=== PATIENT | male | born 1950 | race Two or more races ===

== ENCOUNTER 2022-05-05 05:10 | Day surgery (SDC) | payer OTHER ==
[~2022-05-05 05:10] MED LIST: AMLODI PO; LEVO-T175 MCG PO; PLAVIX75 MG PO; SINGULAIR10 MG PO; VALSARTAN-HCTZ1 EAC2 PO; [UNRECOGNIZED DRUG - OTHER] PO
== END 2022-05-05 16:00 | disposition home or self-care (01) ==
LOC: CIR.AMB 05:10
PROVIDERS: ATTEND Colon & Rectal Surgery
DX: K60.5 Anorectal fistula (principal); Z20.822 Contact with and (suspected) exposure to COVID-19; Z88.6 Allergy status to analgesic agent; I10 Essential (primary) hypertension; Z95.5 Presence of coronary angioplasty implant and graft; E78.5 Hyperlipidemia, unspecified; I25.10 Atherosclerotic heart disease of native coronary artery without angina pectoris; J45.909 Unspecified asthma, uncomplicated

== ENCOUNTER 2022-10-27 06:33 | Day surgery (SDC) | payer OTHER ==
[~2022-10-27] VITALS: Ht 177.8 cm; Wt 127.0 kg
[~2022-10-27 06:33] MED LIST changes: +DILTIAZEM 24HR180 MG PO; +ELIQUIS5 MG PO; +FLECAINIDE ACE100 MG PO
== END 2022-10-27 18:00 | disposition home or self-care (01) ==
LOC: CIR.AMB 06:33
PROVIDERS: ATTEND Colon & Rectal Surgery
DX: K60.5 Anorectal fistula (principal); K60.3 Anal fistula; Z88.6 Allergy status to analgesic agent; K92.1 Melena; I10 Essential (primary) hypertension; E03.9 Hypothyroidism, unspecified

== ENCOUNTER 2023-06-24 07:06 | Emergency (ER) | payer OTHER ==
[~2023-06-24] VITALS: Ht 177.8 cm; Wt 81.6 kg
[2023-06-24] MEDS ORDERED: MONTELUKAST SODI4 M1 (07:24)
[2023-06-24 08:49] LABS: HEMATOCRIT 37.2 % (39.0-48.0); HEMOGLOBIN 12.1 g/dL (13-16.00); MEAN CELL VOLUME 70.6 fL (80.0-100.00); MEAN CORPUSCULAR HEMOGLOBIN 22.9 pg (27.00-32.0); MEAN CORPUSCULAR HGB CONC 32.4 g/dl (32.0-36.0); PLATELET COUNT 375 K/uL (150-450); RED BLOOD COUNT 5.28 M/uL (4.00-6.00); RED CELL DISTRIBUTION WIDTH 20.2 % (11.5-14.5)
[2023-06-24 09:03] LABS: URINE APPEARANCE Clear; URINE BACTERIA 12.5 uL (0.0-1933); URINE BILIRRUBIN Negative (NEGATIVE); URINE BLOOD Negative; URINE COLOR Yellow; URINE LEUKOCYTE Negative; URINE NITRATE Negative; URINE PROTEIN Negative (NEGATIVE); URINE UROBILINOGEN 0.2 E.U./dl
[2023-06-24 09:11] LABS: URINE EPITHELIAL CELLS 0.3 uL (0.0-38.8); URINE GLUCOSE >=1000 MG/DL (NEGATIVE); URINE RBC 1.4 uL (0.0-20.8)
[2023-06-24 09:33] LABS: CALCIUM 9.2 mg/dL (8.5-10.1); CREATININE SERUM 1.09 mg/dL (0.70-1.30); GFR 66.31; POTASSIUM 4.12 mEq/L (3.5-5.1)
== END 2023-06-24 14:58 | disposition home or self-care (01) ==
LOC: ER 07:07
PROVIDERS: Emergency Medicine
DX: K60.3 Anal fistula (principal); Z88.6 Allergy status to analgesic agent; J45.909 Unspecified asthma, uncomplicated; I10 Essential (primary) hypertension; E03.9 Hypothyroidism, unspecified
CPT/HCPCS: 36415; 74177; 96365; 96366; 99284; J2543; J7030; Q9965

== ENCOUNTER 2023-09-14 06:44 | Day surgery (SDC) | payer OTHER ==
[~2023-09-14] VITALS: Ht 177.8 cm; Wt 127.5 kg
[~2023-09-14 06:44] MED LIST changes: +MONTELUKAST SODI4 M1
[2023-09-14] MEDS ORDERED: LIDOCAINE HCL 1%/Epi 20ML VIAL IJ ONE ×2 (13:04→14:02)
[2023-09-14] MEDS ORDERED: POVIDONE-IODINE 118 ML BOTT TOP ONE (13:43)
[2023-09-14] MEDS ORDERED: CEFTRIAXONE SODIUM 2,000 MG VIAL ONE (13:44)
[2023-09-14] MEDS ORDERED: DIBUCAINE 15 GM OINT..GM. TUBE ONE (13:44)
[2023-09-14] MEDS ORDERED: METRONIDAZOLE/SODIUM CHLORIDE 500 MG/100 ML PIGGYBACK IV ONE (13:44)
[2023-09-14] MEDS ORDERED: BUPIVACAINE HCL/PF 0.5% 30ML ML ONE (13:58)
[2023-09-14] MEDS ORDERED: HEMOSTATIC MATRIX 1 KIT KIT TOP ONE (13:59)
[2023-09-14] MEDS ORDERED: DIBUCAINE 30 GM TUBE ONE (14:02)
[2023-09-14] MEDS ORDERED: POVIDONE-IODINE 118 ML BOTT TOP SCH (14:30)
[2023-09-14] MEDS ORDERED: LIDOCAINE HCL/EPINEPHRINE 10 ML VIAL IJ SCH (14:30)
[2023-09-14] MEDS ORDERED: HEMOSTATIC MATRIX 1 KIT KIT TOP SCH (14:30)
[2023-09-14] MEDS ORDERED: METRONIDAZOLE/SODIUM CHLORIDE 500 MG/100 ML PIGGYBACK IV SCH (14:30)
[2023-09-14] MEDS ORDERED: DIBUCAINE 30 GM TUBE RECTAL SCH (14:30)
[2023-09-14] MEDS ORDERED: CEFTRIAXONE SODIUM 2,000 MG VIAL IV SCH (14:30)
[2023-09-14] MEDS ORDERED: BUPIVACAINE HCL/PF 0.5% 30ML ML IJ SCH (14:30)
[2023-09-14] MEDS ORDERED: HYDROGEN PEROXIDE 118 ML SOLUTION TOP SCH (15:00)
[2023-09-14] MEDS ORDERED: ENALAPRILAT DIHYDRATE 1.25 MG/ML VIAL IV ONE (20:57)
[2023-09-14] MEDS ORDERED: PHENAZOPYRIDINE HCL 100 MG TABLET PO ONE (20:57)
[2023-09-16] MEDS ORDERED: FAMOTIDINE/PF 20 MG/2 ML VIAL ONE (15:05)
== END 2023-09-14 19:15 | disposition home or self-care (01) ==
LOC: CIR.AMB 06:44
PROVIDERS: ATTEND Colon & Rectal Surgery
DX: K60.3 Anal fistula (principal); Z88.6 Allergy status to analgesic agent; E78.5 Hyperlipidemia, unspecified; I10 Essential (primary) hypertension; E03.9 Hypothyroidism, unspecified

== ENCOUNTER 2024-08-01 06:40 | Day surgery (SDC) | payer OTHER ==
[2024-07-25 11:49] VITALS: BP 164/82
[2024-07-25 11:59] LABS: URINE APPEARANCE Clear; URINE BILIRRUBIN Negative (NEGATIVE); URINE BLOOD Negative; URINE COLOR Yellow; URINE GLUCOSE Negative (NEGATIVE); URINE KETONE Negative (NEGATIVE); URINE LEUKOCYTE Negative; URINE NITRATE Negative; URINE PROTEIN Negative (NEGATIVE); URINE UROBILINOGEN 0.2 E.U./dl
[2024-07-25 12:00] LABS: URINE RBC 9.8 uL (0.0-20.8)
[2024-07-25 12:04] LABS: HEMATOCRIT 35.5 % (39.0-48.0); HEMOGLOBIN 11.3 g/dL (13-16.00); MEAN CORPUSCULAR HEMOGLOBIN 21.9 pg (27.00-32.0); MEAN CORPUSCULAR HGB CONC 31.7 g/dl (32.0-36.0); PLATELET COUNT 234 K/uL (150-450); RED BLOOD COUNT 5.15 M/uL (4.00-6.00); RED CELL DISTRIBUTION WIDTH 18.9 % (11.5-14.5)
[2024-07-25 12:10] LABS: URINE BACTERIA 3.6 uL (0.0-1933); URINE EPITHELIAL CELLS 0.6 uL (0.0-38.8)
[2024-07-25 12:41] LABS: INR 1.06; PARTIAL THROMBOPLASTIN TIME 30.8 SECONDS (22.0-34.0); PROTHROMBIN TIME 11.5 SECONDS (9.0-11.5)
[2024-07-25 12:43] LABS: ALBUMIN 3.8 gm/dL (3.4-5.0); BILIRUBIN TOTAL 0.38 mg/dL (0.3-1.2); CREATININE SERUM 1.03 mg/dL (0.70-1.30); GFR 70.59; POTASSIUM 4.7 mEq/L (3.5-5.1); TOTAL PROTEIN 6.8 gm/dL (6.4-8.2)
[~2024-08-01] VITALS: Ht 177.8 cm; Wt 127.0 kg
[~2024-08-01 06:40] MED LIST changes: +PREVACID30 M1 PO
[2024-08-01] MEDS ORDERED: HEMOSTATIC MATRIX 1 KIT KIT TOP ONE (09:52)
[2024-08-01] MEDS ORDERED: DIBUCAINE 30 GM TUBE ONE (09:52)
[2024-08-01] MEDS ORDERED: BUPIVACAINE HCL/Mpf 0.5% 10ML VIAL ONE (09:53)
[2024-08-01] MEDS ORDERED: CEFTRIAXONE SODIUM 2,000 MG VIAL ONE (09:53)
[2024-08-01] MEDS ORDERED: LIDOCAINE HCL 1%/EPINEPHRINE 20ML VIAL IJ ONE (09:53)
[2024-08-01] MEDS ORDERED: METRONIDAZOLE/SODIUM CHLORIDE 500 MG/100 ML PIGGYBACK IV ONE (09:54)
[2024-08-01] MEDS ORDERED: POVIDONE-IODINE 118 ML BOTT TOP ONE (09:57)
== END 2024-08-01 15:52 | disposition home or self-care (01) ==
LOC: CIR.AMB 06:40
PROVIDERS: ATTEND Colon & Rectal Surgery
DX: K60.30 Anal fistula, unspecified (principal); K92.1 Melena